=== PATIENT | female | born 1985 | race Caucasian/White ===

== ENCOUNTER 2022-03-08 08:16 | Outpatient (CLI) | payer OTHER | END 2022-03-08 08:32 | disposition home or self-care (01) | LOC: SONOGRAMA 08:16 | PROVIDERS: ATTEND General Practice | DX: Z12.11 Encounter for screening for malignant neoplasm of colon (principal); Z12.4 Encounter for screening for malignant neoplasm of cervix; R10.9 Unspecified abdominal pain; R05.9 Cough, unspecified; Z12.2 Encounter for screening for malignant neoplasm of respiratory organs ==

== ENCOUNTER 2024-01-12 14:19 | Outpatient (CLI) | payer OTHER | END 2024-01-12 14:33 | disposition home or self-care (01) | LOC: MAMO-SONO 14:19 | PROVIDERS: ATTEND Specialist | DX: Z12.31 Encounter for screening mammogram for malignant neoplasm of breast (principal); Z76.0 Encounter for issue of repeat prescription ==